=== PATIENT | male | born 1930 | race Caucasian/White ===

== ENCOUNTER 2016-09-29 05:25 | Day surgery (SDC) | payer MEDICARE, OTHER ==
[2016-09-28 14:31] LABS: BASOPHILS 0.1 % (0.0-2.0); EOSINOPHILS 0.8 % (0-7); HEMATOCRIT 32.6 % (42.0-54.0); HEMOGLOBIN 10.8 g/dL (13.5-17.5); IMMATURE GRANULOCYTES 4.7 % (0-5); LYMPHOCYTES 13.7 % (15-50); MCH 31.8 pg (26.0-34.0); MCHC 33.1 g/dL (31.0-37.0); MCV 95.9 fL (80.0-100.0); MONOCYTES 4.8 % (2-11); NEUTROPHILS 75.9 % (40-80); PLATELET COUNT 299 10x3/uL (130-400); RDW 15.1 % (11.5-14.5); WBC 7.2 10x3/uL (4.8-10.8)
[2016-09-28 14:39] LABS: CALCIUM 8.5 mg/dL (8.5-10.1); CARBON DIOXIDE 24.8 mmol/L (21.0-32.0); CREATININE - SERUM 1.7 mg/dL (0.6-1.3); POTASSIUM - SERUM 4.8 mmol/L (3.5-5.1)
[~2016-09-29] VITALS: Ht 177.8 cm; Wt 90.3 kg
[~2016-09-29 05:25] MED LIST: ANAGRELIDE HCL1 MG PO; BAYER CHEWABLE81 MG PO; FLOMAX0.4 MG PO; LEVOTHYROXINE175 MCG PO; LIPITOR20 MG PO; MULTIPLE VITAMI1 TA1 PO
[2016-09-29 06:17] VITALS: BP 121/60; Ht 177.8 cm; Wt 90.3 kg
[2016-09-29] MEDS ORDERED: FUROSEMIDE20 MG PO (09:33)
[2016-09-29] MEDS ORDERED: HYDROCODON-ACE1 EAC7 PO (09:33)
--- NOTE | 2016-09-29 12:21 | NUR ---
1220--PT UNABLE TO VOID, ICE WATER AND COLA SERVED. WILL CONTINUE TO MONITOR. ALL RN
--- NOTE | 2016-09-29 13:20 | NUR ---
1310-REPORTED TO DR. MASON BLADDER SCAN WITH APPROX. 350CC. NEW ORDER RECEIVED.
--- NOTE | 2016-09-29 14:42 | NUR ---
1430--BLADDER SCAN DONE, 480MLS IN BLADDER. HGRAVES RN
--- NOTE | 2016-09-29 15:59 | NUR ---
1500--INDWELLING CATHETER INSERTED WITHOUT DIIFICULTY. IV DC'D. ALL AMES 7269--DISCHARGE INSTRUCTIONS GIVEN, PT VERBALIZES UNDERSTANDING. THOROUGH JASON CATH CARE INSTRUCTIONS GIVEN, PT VERBALIZED UNDERSTANDING. PT OFF UNIT VIA WC. ALL AMES
--- NOTE | 2016-09-29 20:21 | OP ---
PATIENT NAME: NURA JOYCE MEDICAL RECORD: [id number] :34 LOCATION:[facility] ADMISSION DATE: SURGEON: ANDREWS MASON MD DATE OF OPERATION: 09/29/2016 SURGEON: Andrews Mason MD. PREOPERATIVE DIAGNOSIS: Right inguinal hernia. POSTOPERATIVE DIAGNOSIS: Right inguinal hernia. PROCEDURE PERFORMED: Right inguinal herniorrhaphy with mesh. ANESTHESIA: General. COMPLICATIONS: None. SPECIMENS: Hernia sac and cord lipoma. ESTIMATED BLOOD LOSS: 20 cc. Case was clean. OPERATIVE COURSE: After consent was obtained, the patient was taken to the operating room and placed in the supine position on the operating table. Next, general anesthesia was given via endotracheal intubation. After a timeout was performed that confirmed the correct patient and procedure, the groin was then prepped and draped in typical sterile fashion. Ioban dressing was placed. External landmarks were identified. A 10 cc of local anesthetic were injected just medial and inferior to the ASIS for block and local anesthetic was injected for the transverse incision. Transverse incision was made with a 15-blade scalpel. Dissection continued to the level of the external oblique fascia using electrocautery. Self-retaining retractors were placed and local anesthetic was injected on the external oblique fascia. The fascia was incised with a 15-blade scalpel. Using Metzenbaum scissors in a standard push cut technique, the external oblique fascia was opened through the external ring and towards the ASIS. Blunt dissection was then performed to raise the external oblique fascia. Hemostats were placed and self-retaining retractors placed. The spermatic cord and the contents were then dissected off the pubic tubercle. A Granger drain was placed. The cord and vessels were identified. The cremasteric muscles were dissected. There is a large hernia sac containing multiple loops of small bowel. The hernia sac was dissected off the cord structures. The sac was opened and the small bowel contents were reduced. High ligation was performed on the hernia sac and the hernia sac was sent for permanent pathology as well as the cord lipoma. The direct space also had a large hernia defect. The conjoined tendon was then sewn to the inguinal ligament using an 0 Vicryl suture, recreating the internal ring. Next, a Parietex mesh was placed into the space. It was secured to the pubic tubercle with interrupted 2-0 Prolene sutures also secured to the inguinal ligament. A keyhole incision was made, again reinforcing the internal ring loosely and was then secured to the conjoined tendon. The external oblique fascia was then closed using 0 Vicryl suture. The wound was then copiously irrigated and suctioned. Subcutaneous tissue was closed with 3-0 Vicryl suture. The skin was closed with 4-0 Monocryl, Mastisol and Steri-Strips. At the end of the case, all needle and instrument counts were correct. No complications occurred. The patient was OPERATIVE REPORT [id number] NURA JOYCE extubated and transferred to the PACU in stable condition. TRANSINT:[id number] Voice Confirmation ID: [id number] DOCUMENT ID: [id number] ANDREWS MASON MD at 2020 CC: [id number] DICTATION DATE: 09/29/16 0932 IMPORT EXPORT CLERK: 09/29/16 1302 [facility] 09/29/16 [id number] [place] [address]
== END 2016-09-29 15:30 | disposition home or self-care (01) ==
LOC: D.OPS 05:25 → D.PAN 07:30 → D.OPS 15:30
PROVIDERS: Anesthesiology
DX: K40.90 Unilateral inguinal hernia, without obstruction or gangrene, not specified as recurrent (principal); D17.6 Benign lipomatous neoplasm of spermatic cord

== ENCOUNTER 2016-10-18 08:29 | Observation (INO) | payer MEDICARE, OTHER ==
[~2016-10-18] VITALS: Ht 177.8 cm; Wt 89.3 kg
[~2016-10-18 08:29] MED LIST changes: +FUROSEMIDE20 MG PO; +HYDROCODON-ACE1 EAC7 PO
[2016-10-18 12:00] VITALS: BP 168/48
[2016-10-18 12:12] VITALS: BP 168/48; Ht 177.8 cm; Wt 89.3 kg
--- NOTE | 2016-10-18 12:21 | NUR ---
ARRIVED FROM CT DIRECT ADMIT. SEE ASSESSMENT FOR FURTHER INFO. Valentine ASTUDILLO RN VASCULAR ACESS NURSE STARTED IV IN R HAND WITH 22 GA ON 1ST ATTEMPT. IV ZULEIMA. Vishal HEADLEYN HERE TO EXAMINE PATIENT. INCISION NOTED R GROIN NO REDNESS OR INFECTION NOTED. PT NPO. WILL CONTINUE TO MONITOR.
[2016-10-18 12:46] LABS: ALBUMIN 3.8 g/dL (3.4-5.0); ANION GAP 16.8 mmol/L (8-16); BILIRUBIN - TOTAL 0.89 mg/dL (0.2-1.3); CALCIUM 8.8 mg/dL (8.5-10.1); CARBON DIOXIDE 21.9 mmol/L (21.0-32.0); CREATININE - SERUM 1.6 mg/dL (0.6-1.3); POTASSIUM - SERUM 4.7 mmol/L (3.5-5.1); PROTEIN - SERUM 6.6 g/dL (6.4-8.2)
[2016-10-18 13:03] LABS: BASOPHILS 0.6 % (0.0-2.0); EOSINOPHILS 0.7 % (0-7); HEMATOCRIT 33.7 % (42.0-54.0); HEMOGLOBIN 10.3 g/dL (13.5-17.5); IMMATURE GRANULOCYTES 5.4 % (0-5); LYMPHOCYTES 10.7 % (15-50); MCH 30.8 pg (26.0-34.0); MCHC 30.6 g/dL (31.0-37.0); MCV 100.9 fL (80.0-100.0); MEAN PLATELET VOLUME 11.5 fL (7.4-10.4); MONOCYTES 6.8 % (2-11); NEUTROPHILS 75.8 % (40-80); PLATELET COUNT 286 10x3/uL (130-400); RBC 3.34 10x6/uL (4.20-6.10); RDW 16.8 % (11.5-14.5); WBC 8.2 10x3/uL (4.8-10.8)
--- NOTE | 2016-10-18 15:30 | NUR ---
PT RESTING COMFORTABLY IN BED WITH IV IN RT. HAND PATENT WITH NS INFUSING VIA PUMP AT 100ML'S/HR. NO COMPLAINTS OF ANY PAIN OR DISCOMFORT. CALL LIGHT IS IN REACH. PT IS NPO. TELEMETRY ON. WILL CONTINUE TO OBSERVE AND ASSIST PRN WITH ADL'S.
[2016-10-18 17:21] VITALS: BP 132/66
[2016-10-18 20:00] VITALS: BP 113/46
--- NOTE | 2016-10-19 00:19 | NUR ---
ASSESSMENT COMPLETE, IV-R.HAND, A&O, UO AB RESHMA, [id number], BED IS LOW, SRX2, CALL LIGHT IN REACH, WILL CONTINUE TO MONITOR
--- NOTE | 2016-10-19 00:35 | NUR ---
BUTANE COMPRESSOR OPERATOR AT BEDSIDE TO OBTAIN VITALS, CALL LIGHT IN REACH. WILL CONTINUE WITH PLAN OF CARE.
[2016-10-19 04:00] VITALS: BP 96/63
[2016-10-19 05:39] LABS: BASOPHILS 0.1 % (0.0-2.0); EOSINOPHILS 0.7 % (0-7); HEMATOCRIT 33.1 % (42.0-54.0); HEMOGLOBIN 10.4 g/dL (13.5-17.5); IMMATURE GRANULOCYTES 6.2 % (0-5); LYMPHOCYTES 14.3 % (15-50); MCH 30.7 pg (26.0-34.0); MCHC 31.4 g/dL (31.0-37.0); MCV 97.6 fL (80.0-100.0); MEAN PLATELET VOLUME 11.2 fL (7.4-10.4); MONOCYTES 5.9 % (2-11); NEUTROPHILS 72.8 % (40-80); RBC 3.39 10x6/uL (4.20-6.10); RDW 16.7 % (11.5-14.5); WBC 7.4 10x3/uL (4.8-10.8)
[2016-10-19 05:40] LABS: PLATELET COUNT 354 10x3/uL (130-400)
[2016-10-19 05:57] LABS: ALBUMIN 3.5 g/dL (3.4-5.0); ANION GAP 15.6 mmol/L (8-16); BILIRUBIN - TOTAL 0.74 mg/dL (0.2-1.3); CALCIUM 8.5 mg/dL (8.5-10.1); CARBON DIOXIDE 22.9 mmol/L (21.0-32.0); CREATININE - SERUM 1.6 mg/dL (0.6-1.3); POTASSIUM - SERUM 4.5 mmol/L (3.5-5.1); PROTEIN - SERUM 6.1 g/dL (6.4-8.2)
--- NOTE | 2016-10-19 07:46 | NUR ---
AM ROUNDS- PT IN BED, AT BEDSIDE. MONITOR SHOWING SB QITH PAC, HR 53. NS IFFUSSING AT 100 IN RIGHT HAND. PT HAS NO NEEDS AT THIS TIME. WILL CONTINUE TO MONITOR.
[2016-10-19 08:13] VITALS: BP 132/55
--- NOTE | 2016-10-19 08:31 | NUR ---
PATIENT STATES THAT HE IS GOING HOME AT 0900 TODAY. SALINE LOCK TO IV.
--- NOTE | 2016-10-19 08:37 | NUR ---
RATIONALE FOR SCD'S EXPLAINED. REFUSED SCD'S
--- NOTE | 2016-10-19 09:00 | NUR ---
DR MASON HERE TO SEE PATIENT AND GIVE HIS OKAY FOR DISCHARGE. PHYLLIS OLSON APN PAGED FOR OFFICAL DISCHARGE ORDERS. PATIENT IS WANTING TO GO HOME NOW.
--- NOTE | 2016-10-19 09:51 | NUR ---
0945-PHYLLIS TO CALL BACK AND I RELAYED THE INFORMATION TO HER THAT PATIENT IS ADAMENT ABOUT DISCHARGE AND READY.
--- NOTE | 2016-10-19 11:12 | NUR ---
HEART MONITOR TURNED IN PATIENT IS BEING DISCHARGED. VERBAL AND WRITTEN DISCHARGE ORDERS GIVEN TO PATIENT AND . WILL REMOVE SALINE LOCK.
== END 2016-10-19 12:30 | disposition home or self-care (01) ==
LOC: D.RAD 08:29 → D.M2 10:39 → OBSVTIME 10:39 → D.M2 10:39 → D.RAD 10:39 → D.M2 10-19 12:30
PROVIDERS: ADMIT Family Medicine
DX: R35.0 Frequency of micturition (principal); K91.871 Postprocedural hematoma of a digestive system organ or structure following other procedure; N17.9 Acute kidney failure, unspecified; R39.15 Urgency of urination; D72.829 Elevated white blood cell count, unspecified; Y83.8 Other surgical procedures as the cause of abnormal reaction of the patient, or of later complication, without mention of misadventure at the time of the procedure; D64.9 Anemia, unspecified

== ENCOUNTER 2020-03-26 17:07 | Observation (INO) | payer MEDICARE, BC ==
[~2020-03-26] VITALS: Ht 177.8 cm; Wt 81.8 kg
[2020-03-26 17:37] VITALS: BP 118/68
--- NOTE | 2020-03-26 17:42 | NUR ---
PATIENT HR NOTED TO BE 88. REPEAT EKG PERFORMED. HR NOTED TO BE 84. EKG SHOWS SINUS RHYTHM
[2020-03-26 18:26] LABS: HEMATOCRIT 30.7 % (42.0-54.0); MCH 31.1 pg (26.0-34.0); MCHC 32.6 g/dL (31.0-37.0); MCV 95.3 fL (80.0-100.0); RBC 3.22 10x6/uL (4.20-6.10); RDW 15.4 % (11.5-14.5); WBC 8.7 10x3/uL (4.8-10.8)
[2020-03-26 18:31] LABS: CALC OSMOLALITY 285 mosm/kg (275-300); CALCIUM 8.5 mg/dL (8.5-10.1); CHLORIDE - SERUM 105 mmol/L (98-107); CREATININE - SERUM 2.3 mg/dL (0.6-1.3); GLUCOSE 126 mg/dL (74-106); POTASSIUM - SERUM 4.1 mmol/L (3.5-5.1); SODIUM 138 mmol/L (136-145); UREA NITROGEN 36 mg/dL (7-18); eGFR NON AFRICAN AMERICAN 29 mL/min (90-120)
[2020-03-26 18:35] LABS: APTT 30.4 SECONDS (22.8-39.4); INR 1.15 (0.85-1.17); PROTIME 14.6 SECONDS (11.6-15.0)
[2020-03-26 18:39] LABS: PLATELET COUNT 261 10x3/uL (130-400)
[2020-03-26 18:43] LABS: EOSINOPHILS 3 % (0-7); LYMPHOCYTES 13 % (15-50); MONOCYTES 6 % (2-11); NEUTROPHILS 78 % (40-80); PLATELET ESTIMATE NORMAL
[2020-03-26 18:52] LABS: ALBUMIN 3.6 g/dL (3.4-5.0); ALKALINE PHOSPHATASE 59 U/L (30-120); ALT (SGPT) 17 U/L (10-68); BILIRUBIN - TOTAL 0.35 mg/dL (0.2-1.3); CKMB 2.1 U/L (0.0-3.6); CREATINE KINASE 67 UL (21-232); MAGNESIUM - SERUM 2.3 mg/dL (1.8-2.4); PROTEIN - SERUM 6.5 g/dL (6.4-8.2)
[2020-03-26 19:03] LABS: TROPONIN-I 0.124 ng/mL (0.000-0.060)
--- NOTE | 2020-03-26 22:08 | NUR ---
PT PROVIDED WITH WATER AND SANDWICH TRAY.
[2020-03-26] MEDS ORDERED: ELIQUIS5 MG PO (23:48)
[2020-03-26] MEDS ORDERED: AGRYLIN0.5 MG (23:49)
[2020-03-26] MEDS ORDERED: NAMENDA10 MG PO (23:50)
[2020-03-26] MEDS ORDERED: FOLIC ACID1 MG PO (23:50)
[2020-03-26] MEDS ORDERED: LIPITOR20 MG PO (23:51)
[2020-03-26 23:55] VITALS: BP 121/56; Ht 177.8 cm; Wt 81.8 kg
--- NOTE | 2020-03-26 23:59 | NUR ---
RECEIVED REPORT, WILL ASSUME CARE OF PT, A&Ox4, PLACED ON [id number], MEDS AND HISTORY COMPLETE, BED IS LOW, SRX2, CALL LIGHT IN REACH, WILL CONTINUE PLAN OF CARE, AT BEDSIDE
--- NOTE | 2020-03-27 00:22 | NUR ---
ADMISSION ASSESSMENT AND HISTORY COMPLETED. HOME MEDS REVIEWED. PT ALERT/ORIENTED AND AMBULATORY.
[2020-03-27 04:39] VITALS: BP 112/60
[2020-03-27 05:51] LABS: BASOPHILS 0.3 % (0-2); EOSINOPHILS 1.4 % (0-7); HEMATOCRIT 28.6 % (42.0-54.0); HEMOGLOBIN 9.2 g/dL (13.5-17.5); IMMATURE GRANULOCYTES 6.9 % (0-5); LYMPHOCYTES 13.2 % (15-50); MCH 30.4 pg (26.0-34.0); MCHC 32.2 g/dL (31.0-37.0); MCV 94.4 fL (80.0-100.0); MONOCYTES 5.1 % (2-11); NEUTROPHILS 73.1 % (40-80); PLATELET COUNT 234 10x3/uL (130-400); RBC 3.03 10x6/uL (4.20-6.10); RDW 15.6 % (11.5-14.5); WBC 6.7 10x3/uL (4.8-10.8)
[2020-03-27 06:11] LABS: CALC OSMOLALITY 285 mosm/kg (275-300); CALCIUM 8.1 mg/dL (8.5-10.1); CARBON DIOXIDE 25.2 mmol/L (21.0-32.0); CHLORIDE - SERUM 108 mmol/L (98-107); CHOL - HDL RATIO 4.4 ratio (2.3-4.9); CHOLESTEROL, TOTAL 110 mg/dL (0-200); CKMB 2.4 U/L (0.0-3.6); CREATINE KINASE 71 UL (21-232); CREATININE - SERUM 2.1 mg/dL (0.6-1.3); GLUCOSE 105 mg/dL (74-106); HDL CHOLESTEROL 25 mg/dL (32-96); LDL CHOLESTEROL 36 mg/dL (0-100); LDL-HDL RATIO 1.4 ratio (1.5-3.5); MAGNESIUM - SERUM 2.2 mg/dL (1.8-2.4); PHOSPHOROUS 3.8 mg/dL (2.5-4.9); PRO BNP 8594 pg/mL (0-450); SODIUM 139 mmol/L (136-145); TRIGLYCERIDE 246 mg/dL (30-200); UREA NITROGEN 35 mg/dL (7-18); eGFR NON AFRICAN AMERICAN 32 mL/min (90-120)
[2020-03-27 06:14] LABS: TROPONIN-I 0.291 ng/mL (0.000-0.060)
[2020-03-27 08:36] VITALS: BP 118/58
--- NOTE | 2020-03-27 10:12 | NUR ---
NEW BAG OF NS HUNG AT THIS TIME. PT A/O X4, RESP EVEN AND NONLABORED ON RA. PT DENIES ANY CHEST PAIN OR DISCOMFORTS, WANTS TO GO HOME. PT DENIES ANY NEEDS AT THIS TIME. CALL LIGHT IN REACH, NAD NOTED, WILL CONTINUE TO MONITOR.
[2020-03-27 12:00] VITALS: BP 129/56
[2020-03-27 12:05] LABS: CKMB 3.3 U/L (0.0-3.6); CREATINE KINASE 69 UL (21-232)
[2020-03-27 12:12] LABS: TROPONIN-I 0.204 ng/mL (0.000-0.060)
--- NOTE | 2020-03-27 13:51 | NUR ---
CALLED DR. HINES AND ASKED HIM THAT PRIMARY WANTED TO KNOW IF PT COULD BE DISCHARGE AFTER ECHO, SINCE PT HAS BEEN ADAMANT TO GO HOME TODAY. PER DR. HINES PT CAN GO IF RATES ARE CONTROLLED. RECOMMENDS STARTING 30MG OF CARDIZEM BID.
[2020-03-27] MEDS ORDERED: CARDIZEM30 MG PO (13:54)
--- NOTE | 2020-03-27 14:59 | NUR ---
PROVIDED VERBAL AND WRITTEN DISCHARGE TEACHING TO PT, WHO VERBALIZED UNDERSTANDING REGARDING TEACHING. D/C RT WRIST WITH CATHETER TIP INTACT. HEART MONITOR REMOVED AND TAKEN TO POLICE CAPTAIN PRECINCT. WHEELED PT OUT TO FRONT ENTRANCE WITH ALL BELONGINGS, NAD NOTED.
== END 2020-03-27 14:59 | disposition home or self-care (01) ==
LOC: D.ER 17:07 → D.M2 21:58 → OBSVTIME 21:58 → D.M2 03-27 14:59
PROVIDERS: Emergency Medicine; Family Medicine; ADMIT Family Medicine; ATTEND Family Medicine
DX: I47.1 Supraventricular tachycardia (principal); N17.9 Acute kidney failure, unspecified; D64.9 Anemia, unspecified; I21.A1 Myocardial infarction type 2; Z79.01 Long term (current) use of anticoagulants; E78.5 Hyperlipidemia, unspecified; I25.10 Atherosclerotic heart disease of native coronary artery without angina pectoris; I34.0 Nonrheumatic mitral (valve) insufficiency; I48.91 Unspecified atrial fibrillation; N40.0 Benign prostatic hyperplasia without lower urinary tract symptoms; F03.90 Unspecified dementia, unspecified severity, without behavioral disturbance, psychotic disturbance, mood disturbance, and anxiety; Z87.891 Personal history of nicotine dependence; Z86.718 Personal history of other venous thrombosis and embolism